=== PATIENT | male | born 1995 | race Caucasian/White ===

== ENCOUNTER 2016-12-04 08:14 | Day surgery (SDC) | payer BC ==
[~2016-12-04] VITALS: Ht 180.3 cm; Wt 72.4 kg
--- NOTE | 2016-12-11 08:33 | OR ---
ADMIT: 12/04/2016 RM/LOC: [facility] MR#: [id number] [facility]#: [id number] [address] [id number] [place] [address] [facility] [place] [address] Operative/Delivery Room Report SEX: M AGE: 21 : 1995 SURGERY DATE: 12/04/2016 SURGEON: Jose Harris MD PREOPERATIVE DIAGNOSIS: Dysphagia. POSTOPERATIVE DIAGNOSIS: Erosive esophagitis. PROCEDURE: Esophagogastroduodenoscopy with biopsy. ANESTHESIA: IV general. DESCRIPTION OF PROCEDURE: The patient was taken to the endoscopy suite and placed left side down on his hospital cart. A bite-block was placed and IV sedation was established. The upper endoscope was advanced through the oropharynx into the esophagus without difficulty. The scope was pushed under visualization of the stomach. Air was used to insufflate the stomach. The pylorus was intubated. The first and second portions of the duodenum were examined and appeared normal. The scope was withdrawn to the stomach. The gastric antrum body and fundus appeared normal. No hiatal hernia was demonstrated. The scope was drawn to the gastroesophageal junction, where there was severe inflammatory change. Biopsies were obtained at this level. The scope was withdrawn to the mid esophagus, where there was less inflammatory change. Biopsies at this level were obtained separately to evaluate for eosinophilia. The remainder of the proximal esophagus appeared normal upon withdrawal of the scope. There was no stricture found at the time of the endoscopy. Air was suctioned. The patient tolerated the procedure well and transferred to the recovery area in stable condition. PLAN: We will initiate proton pump inhibitor therapy with omeprazole once daily and await biopsy results. Jose Harris MD/ melissa JOB #: [id number] CC: Jose Harris, Attending Physician Pato Adair MD, Family Physician
== END 2016-12-04 11:10 | disposition home or self-care (01) ==
LOC: SSS 08:14
PROC: 0DB38ZX Excision of Lower Esophagus, Via Natural or Artificial Opening Endoscopic, Diagnostic (ICD-10-PCS; principal; 2016-12-04)
PROC: 0DB28ZX Excision of Middle Esophagus, Via Natural or Artificial Opening Endoscopic, Diagnostic (ICD-10-PCS; principal; 2016-12-04)
DX: K20.0 Eosinophilic esophagitis (principal); Z88.0 Allergy status to penicillin; Z79.899 Other long term (current) drug therapy